=== PATIENT | female | born 1990 | race Caucasian/White ===

== ENCOUNTER → 2016-07-25 | Outpatient (CLI) | payer BC ==
[~2016-07-25] MED LIST: BCPILLS PO
== END | disposition home or self-care (01) ==
LOC: C.PAPS 09:57
PROVIDERS: ATTEND Obstetrics & Gynecology
DX: Z01.419 Encounter for gynecological examination (general) (routine) without abnormal findings (principal)

== ENCOUNTER → 2016-09-29 | Outpatient (CLI) | payer BC ==
[2016-09-29 12:48] LABS: C-REACTIVE PROTEIN < 0.29 mg/dl (0-0.29); RHEUMATOID FACTOR < 10.0 U/mL (0-15)
[2016-09-29 14:04] LABS: LYME DISEASE AB IGG NEG (NEG); LYME DISEASE AB IGM NEG (NEG)
== END | disposition home or self-care (01) ==
LOC: C.LABBFT 10:18
PROVIDERS: ATTEND Physician Assistant Medical
DX: M79.641 Pain in right hand (principal)

== ENCOUNTER → 2016-10-04 | Outpatient (CLI) | payer BC ==
--- NOTE | 2016-10-04 17:31 | DIAGNOSTIC IMAGING REPORT ---
LEFT HAND MIN 3 VIEWS ROUTINE CLINICAL HISTORY: Left hand pain COMPARISON: None. DISCUSSION: No fractures or dislocations are visualized. There is no erosive disease. IMPRESSION: No bony abnormalities identified. Electronically signed by: Romie Solano M.D. 10/04/2016 5:29 PM Dictated Date/Time: 10/04/2016 5:29 PM
--- NOTE | 2016-10-04 17:32 | DIAGNOSTIC IMAGING REPORT ---
RIGHT HAND MIN 3 VIEWS ROUTINE CLINICAL HISTORY: Right hand pain COMPARISON: None. DISCUSSION: No fractures or dislocations are visualized. No erosive changes are visualized. IMPRESSION: No bony abnormalities identified. Electronically signed by: Romie Solano M.D. 10/04/2016 5:30 PM Dictated Date/Time: 10/04/2016 5:30 PM
== END | disposition home or self-care (01) ==
LOC: C.RAD 17:08
PROVIDERS: ATTEND Physician Assistant Medical
DX: M79.641 Pain in right hand (principal); M79.642 Pain in left hand

== ENCOUNTER → 2017-05-13 | Outpatient (CLI) | payer BC | END | disposition home or self-care (01) | LOC: C.LABBFT 14:11 | PROVIDERS: ATTEND Internal Medicine | DX: R39.9 Unspecified symptoms and signs involving the genitourinary system (principal) ==

== ENCOUNTER → 2017-08-21 | Outpatient (CLI) | payer OTHER | END | disposition home or self-care (01) | LOC: C.PAPS 10:03 | PROVIDERS: ATTEND Physician Assistant | DX: Z12.4 Encounter for screening for malignant neoplasm of cervix (principal); Z11.51 Encounter for screening for human papillomavirus (HPV) ==

== ENCOUNTER 2017-10-06 05:01 | Emergency (ER) | payer OTHER ==
[~2017-10-06] VITALS: Ht 167.6 cm; Wt 101.0 kg
[2017-10-06 05:04] VITALS: TEMP 36.6; Ht 167.6 cm; Wt 101.0 kg
[2017-10-06] MEDS ORDERED: DiphenhydrAMINE HCL 50 MG/ML VIAL IV STA (05:18)
[2017-10-06] MEDS ORDERED: SODIUM CHLORIDE 0.9% 1000ML 1,000 ML IV STA (05:18)
[2017-10-06] MEDS ORDERED: [UNRECOGNIZED DRUG - CODE] (05:18)
[2017-10-06] MEDS ORDERED: METOCLOPRAMIDE HCL INJ 5 MG/ML 2 ML VIAL IV STA (05:18)
[2017-10-06 06:41] VITALS: BP 116/66; PULSE 74; O2SAT 100
--- NOTE | 2017-10-06 06:43 | EMERGENCY ROOM VISIT NOTE ---
History First contact with patient: 05:09 Chief Complaint: HEADACHE Stated Complaint: MIGRAINE History of Present Illness The patient is a 26 year old female who presents to the Emergency Room with complaints of headache since last night that was slow in onset with nausea and vomiting with photophobia. Patient sees Dr. Estrada. Normal imaging in the past. She tried Tylenol with no relief of symptoms. Patient denies sudden onset headache, fever, chills, cough, congestion, cold symptoms, neck stiffness , localized weakness. Review of Systems An 10 system review of systems was completed with positives and pertinent negatives listed in the HPI. Past Medical/Surgical History Migraines Social History Smoking Status: Never Smoker Current/Historical Medications Scheduled Hormone Cream Base (Hormone Cream Base), 1 DOSE UNKNOWN DIRECTED Physical Exam Vital Signs Date Time Temp Pulse Resp B/P (MAP) Pulse Ox O2 Delivery O2 Flow Rate FiO2 10/06/17 06:41 74 16 116/66 100 Room Air 10/06/17 05:04 36.6 79 20 122/84 99 Room Air Physical Exam VITALS: Vitals are noted on the nurse's note and reviewed by myself. Vital signs stable. GENERAL: Pleasant female, in no acute distress, nondiaphoretic, well-developed well-nourished. SKIN: The skin was without rashes, erythema, edema, or bruising. There is no tenting of the skin. Capillary reflex less than 2 seconds. HEAD: Normocephalic atraumatic. EARS: External auditory canals clear, tympanic membranes pearly clemente without erythema or effusion bilaterally. EYES: Pupils equal round and reactive to light and accommodation. Conjunctivae without injection, sclerae without icterus. Extraocular movements intact. NOSE: Patent, turbinates without inflammation or discharge. No sinus tenderness. MOUTH: Mucous membranes moist. Pharynx without erythema or exudate. Uvula midline. Airway patent. Tongue does not deviate. NECK: Supple without nuchal rigidity. No lymphadenopathy. No thyromegaly. Cervical spine is nontender. No JVD. HEART: Regular rate and rhythm without murmurs gallops or rubs. LUNGS: Clear to auscultation bilaterally without wheezes, rales or rhonchi. No retractions or accessory muscle use. ABDOMEN: Positive bowel sounds x 4. Normal tympanic percussion. Soft, nontender, without masses or organomegaly. Lombardo sign negative. No guarding or rebound tenderness. No CVA tenderness MUSCULOSKELETAL: No muscle atrophy, erythema, or edema noted. NEURO: Patient was alert and oriented to person place and time. Normal sensation to light and sharp touch. No focal neurological deficits. Medical Decision & Procedures Medications Administered Medications (Trade) Dose Ordered Sig/Sukumar Route Start Time Stop Time Status Last Admin Dose Admin Metoclopramide HCl (Reglan Inj) 10 mg NOW STAT IV 10/06/17 05:18 10/06/17 05:19 DC 10/06/17 05:31 10 MG Diphenhydramine HCl (Benadryl Inj) 12.5 mg NOW STAT IV 10/06/17 05:18 10/06/17 05:19 DC 10/06/17 05:31 12.5 MG Sodium Chloride 1,000 ml @ 999 mls/hr Q1H1M STAT IV 10/06/17 05:18 10/06/17 06:18 DC 10/06/17 05:30 999 MLS/HR ED Course Prior records/ancillary studies reviewed. Additional history obtained from boyfriend. Triage Nursing notes reviewed. The patient's history was concerning for headache. Differential diagnosis: Etiologies such as migraine headache, meningitis, sinusitis, CO exposure, ICH, SAH, infection, tumor, headache, sinus thrombosis, arterial dissection, as well as others were entertained. Physical examination findings: As above. Non-focal. ER treatment provided: Reglan, Benadryl, IV fluids On reassessment the patient felt better. Diagnostics interpreted by me: Deferred This appears to be consistent with migraine. Patient has a long-standing history of this and symptoms feel similar. She is neurovascularly and neurologically intact. Headache was slow in onset. She is advised to rest, stay well-hydrated, follow up with her family care or neurologist in a few days or here in the ER sooner for severe pain, fevers, vomiting, worsening signs or symptoms or as needed.. By the evaluation outlined above emergent etiologies such as meningitis, sinusitis, CO exposure, ICH, SAH, infection, temporal arteritis, tumor, sinus thrombosis, arterial dissection, as well as others were deemed relatively unlikely. The pt informed about the findings as listed above. All questions were answered and pleased with the treatment. Return instructions were outlined and the patient was discharged in stable condition. The chart was completed utilizing Dragon Speech voice recognition software. Grammatical errors, random word insertions, pronoun errors, and incomplete sentences are an occassional consequence of this system due to software limitations, ambient noise, and hardware issues. Any formal questions or concerns about the content, text, or information contained within the body of this dictation should be directly addressed to the physician bankruptcy legal assistant for clarification. Referral: The patient was referred back to their primary care physician for follow-up in 2 to 3 days for a recheck of the current condition. Medical Decision As above Medication Reconcilliation Current Medication List: was personally reviewed by me Blood Pressure Screening Patient's blood pressure: Normal blood pressure Impression Primary Impression: Migraine Departure Information Dispostion Home / Self-Care Condition GOOD Referrals Jamil Carrillo M.D. (PCP) Patient Instructions My [facility] Additional Instructions DO NOT drive, drink alcohol, operate machinery, or perform dangerous activities today. You were given medications in the ER that can affect your ability to safely function or operate a vehicle. Rest today in a quiet, peaceful, dark environment and get a full 8-10 hrs of sleep tonight. Avoid loud noises, smoke/smoking, alcohol, bright lights, stress, or physical exertion today to minimize the chance the headache may return. Continue current medications. Ibuprofen(Motrin, Advil) may be used for fever or pain. Use 600mg every six hours as needed. Take with food. Avoid using more than 2400mg in a 24 hour period. Do not use 2400mg per day for more than three consecutive days without physician direction. Prolonged inappropriate use can lead to stomach upset or ulcers. (AND/OR) Acetaminophen(Tylenol) may be used for fever or pain. Use 1000mg every six hours as needed. Avoid using more than 3000mg in a 24 hour period. Return to the ER for passing out, worsening headache, vision problems, neck stiffness/pain, fevers, vomiting, worsening of your condition, or as needed. Follow up with your primary physician and/or a neurologist in 2-3 days for a recheck of your current condition. Problem Qualifiers Primary Impression: Migraine Migraine type: without aura Status migrainosus presence: without status migrainosus Intractability: not intractable Qualified Codes: G43.009 - Migraine without aura, not intractable, without status migrainosus
== END 2017-10-06 06:45 | disposition home or self-care (01) ==
LOC: C.EDB 05:02 → C.EDA 06:45
DX: G43.009 Migraine without aura, not intractable, without status migrainosus (principal)

== ENCOUNTER 2021-01-25 03:19 | Inpatient (IN) ==
[2021-01-25] MEDS ORDERED: OXYTOCIN 30 UNITS/500 ML BAG IV PRN ×3 (06:06→23:06)
[2021-01-25 06:44] LABS: Hematocrit (blood only) 40.7 % (37-47); Hemoglobin 13.7 g/dL (12.0-16.0); Mean Corpuscular Hgb Conc 33.7 g/dL (32-36); Mean Platelet Volume 10.6 fL (7.4-10.4); Platelet Count 220 K/uL (130-400); RDW Coefficient of Variation 14.6 % (11.5-14.5); RDW Standard Deviation 45.4 fL (36.4-46.3); Red Blood Count 4.73 M/uL (4.2-5.4); White Blood Count 11.06 K/uL (4.8-10.8)
[2021-01-25] MEDS ORDERED: BUTORPHANOL TARTRATE 1 MG/ML VIAL IV PRN (07:37)
[2021-01-25] MEDS: LACTATED RINGER'S 1,000 ML IV PRN ×3 (07:42→15:05)
[2021-01-25] MEDS ORDERED: BUTORPHANOL TARTRATE 1 MG/ML VIAL ONE (08:03)
--- NOTE | 2021-01-25 11:21 | Labor Progress Brief Note ---
Date of Service January 25, 2021 Subjective Admitted in labor overnight. I took over care this morning. FHT Cat 1 [place] irreg SVE: /- Recommend start pitocin for regular ctx. Patient agreeable. Assessment & Plan Admission and Anticipated Discharge Date Admission Date: January 25, 2021 Results & Data ([facility]) Vital Signs (Past 12 Hours) Vital Signs Temp Pulse Resp BP 01/25/21 09:01 61 20 118/60 01/25/21 07:03 36.6 C 49 L 20 116/60 01/25/21 03:30 36.7 C 60 18 123/75 01/25/21 03:28 60 123/75 Coding Level of Care Code None
[2021-01-25] MEDS ORDERED: SODIUM CHLORIDE 0.9% INJ 10 ML VIAL ONE ×2 (12:29→17:58)
[2021-01-25] MEDS ORDERED: ePHEDrine sulfate 50 MG/ML AMP ONE (12:29)
[2021-01-25] MEDS ORDERED: BUPIVACAINE 0.25% 30 ML VIAL ONE ×2 (12:29→17:58)
[2021-01-25] MEDS ORDERED: fentaNYL citrate 100 MCG/2 ML VIAL ONE (12:29)
[2021-01-25] MEDS ORDERED: fentaNYL 2MCG/ML ROPIVACAINE 1.25MG/ML 100 ML BAG EPI ONE (12:30)
[2021-01-25] MEDS ORDERED: diphenhydrAMINE 50 MG/ML VIAL IV PRN (13:11)
[2021-01-25] MEDS ORDERED: NALOXONE HCL 1 MG in SODIUM CHLORIDE 0.9% 1000ML 1,000 ML IV PRN (13:11)
[2021-01-25] MEDS ORDERED: ONDANSETRON INJ 2 MG/ML 2 ML VIAL IV PRN (13:11)
[2021-01-25] MEDS ORDERED: NALBUPHINE HCL INJ 10 MG/ML AMP IV PRN (13:11)
[2021-01-25] MEDS ORDERED: ePHEDrine sulfate 50 MG/ML AMP IV PRN (13:11)
[2021-01-25] MEDS ORDERED: NALOXONE HCL 0.4 MG/1 ML VIAL/CARP IV PRN (13:11)
--- NOTE | 2021-01-25 13:20 | Anesthesiology Consultation ---
Date of Service January 25, 2021 Assessment & Plan Chart Review Chart Review: Patient NOT seen in Pre Admission Testing and Acceptable Risk for Labor Epidural Consults Requested none ASA ASA2 Proposed Anesthesia Anesthesia Type: Labor Epidural and CSE Risk / Benefits Reviewed With: PT / POA / Parent / Guardian, Accepts Plan and Informed Consent Obtained History Height/Weight Height: 5 ft 6 in Weight: 112.945 kg Allergies Allergy/AdvReac Type Severity Reaction Status Date / Time dextromethorphan Allergy Unknown RASH Verified 01/18/21 16:38 guaifenesin Allergy Unknown RASH Verified 01/18/21 16:38 yellow dye Allergy Unknown RASH Verified 01/18/21 16:38 pseudoephedrine AdvReac Verified 01/18/21 16:38 [From [facility]] Medications Home Medications Medication Instructions Recorded Confirmed Last Taken vit no.95-ferrous 1 tab PO DAILY 12/23/18 01/25/21 01/24/21 fumarate 28 mg-folic acid 800 mcg tablet ( Multivitamins) Active Medications Generic Name Dose Route Start Last Admin Trade Name Freq PRN Reason Stop Dose Admin Butorphanol Tartrate 1 mg 01/25/21 07:37 01/25/21 10:48 Butorphanol Tartrate 1 Mg/Ml Vial IV 02/24/21 07:36 1 mg Q2HWA PRN Administration Pain Lactated Ringer's 1,000 mls @ 125 mls/hr 01/25/21 06:06 01/25/21 12:55 Lr IV 01/27/21 06:05 999 mls/hr .Q8H PRN Administration L&D Protocol Protocol Oxytocin 30 units in 500 mls @ 5 mls/hr 01/25/21 11:16 01/25/21 12:45 Pitocin IV 01/27/21 11:15 0.3 units/hr .Q24H PRN 5 mls/hr Labor Induction/Augmentation Titration Protocol 0.3 UNITS/HR NPO Date Last Intake of Fluids: 01/25/21 Time Last Intake of Fluids: 12:00 Date Last Intake of Solids: 01/25/21 Time Last Intake of Solids: 07:00 Past Medical History Medical History ASCUS with positive high risk HPV Atypical chest pain Cervical intraepithelial neoplasia (TYRELL) Fertility testing completed at [place] GERD (gastroesophageal reflux disease) History of migraine with aura Exercise / Class Metabolic Activity II 4-5 Yardwork/Stairs/Walk up hill Past Family History Family History Aunt Migraine Family/Other Hypertension Denies family history of Colon cancer Ovarian cancer Prostate cancer Breast cancer Past Surgical History Surgical History H/O oral surgery wisdom teeth Hx of local excision of skin lesion Past Anesthesia History No Hx of Anesthesia Complications and No Family Hx of Anesthesia Complications History of PONV No Hx of PONV and No Hx of Motion Sickness Social History Smoking Status: Never smoker Hx Alcohol Use: No Hx Substance Use: No Review of Systems no chest pain or sob Physical Exam Vital Signs Last Vital Signs Temp 36.7 C 01/25/21 12:43 Pulse 61 01/25/21 13:13 Resp 22 01/25/21 12:43 BP 141/72 H 01/25/21 13:13 SpO2 97 ENMT Mouth: no TMJ abnormality Thyromental Distance: > or= 3.5 Finger Breadths Mallampati Class: II Neck normal visual inspection Respiratory normal respiratory effort Auscultation: lungs clear to auscultation bilaterally Cardiovascular Rate/Rhythm: regular rate and regular rhythm Musculoskeletal Spine: normal cervical ROM Neurologic moves all extremities Psychiatric Orientation: alert and oriented x 3 Testing Laboratory Results 01/25/21 06:34
--- NOTE | 2021-01-25 15:49 | Labor Progress Brief Note ---
Date of Service January 25, 2021 Subjective Comfortable with epidural. FHT Cat 1 [place] Q 2-3 SVE /-1 AROM clear. Continue IOL. Assessment & Plan Admission and Anticipated Discharge Date Admission Date: January 25, 2021 Results & Data ([place]) Vital Signs (Past 12 Hours) Vital Signs Temp Pulse Resp BP Pulse Ox 01/25/21 15:43 61 99 01/25/21 15:41 67 113/64 01/25/21 15:38 72 99 01/25/21 15:33 90 99 01/25/21 15:30 18 01/25/21 15:28 70 98 01/25/21 15:26 88 120/63 01/25/21 15:23 80 99 01/25/21 15:18 89 98 01/25/21 15:13 68 97 01/25/21 15:10 57 L 129/70 01/25/21 15:08 69 98 01/25/21 15:06 36.7 C 01/25/21 15:03 76 99 01/25/21 14:58 97 H 98 01/25/21 14:55 62 134/70 01/25/21 14:53 64 97 01/25/21 14:48 70 97 01/25/21 14:43 65 97 01/25/21 14:41 61 130/68 01/25/21 14:38 64 98 01/25/21 14:33 91 H 99 01/25/21 14:28 71 96 01/25/21 14:25 87 112/62 01/25/21 14:23 74 97 01/25/21 14:18 79 97 01/25/21 14:13 76 97 01/25/21 14:10 93 H 109/56 L 01/25/21 14:08 77 96 01/25/21 14:03 82 97 01/25/21 13:58 80 98 01/25/21 13:56 73 119/59 L 01/25/21 13:53 73 98 01/25/21 13:48 82 100 01/25/21 13:43 97 H 98 01/25/21 13:40 96 H 115/57 L 01/25/21 13:38 73 108/58 L 99 01/25/21 13:36 74 107/51 L 01/25/21 13:34 75 107/59 L 01/25/21 13:33 68 99 01/25/21 13:32 62 109/56 L 01/25/21 13:30 69 121/57 L 01/25/21 13:28 69 100 01/25/21 13:27 77 128/65 01/25/21 13:23 68 100 01/25/21 13:18 86 99 01/25/21 13:13 61 141/72 H 01/25/21 13:05 58 L 141/76 H 01/25/21 12:43 36.7 C 55 L 22 128/77 01/25/21 12:28 62 139/66 01/25/21 12:12 51 L 141/82 H 01/25/21 11:57 36.7 C 60 20 142/83 H 01/25/21 09:01 61 20 118/60 01/25/21 07:03 36.6 C 49 L 20 116/60 Coding Level of Care Code None
[2021-01-25] MEDS: fentaNYL 2MCG/ML ROPIVACAINE 1.25MG/ML 100 ML BAG EPI PRN ×2 (17:48→19:57)
[2021-01-25] MEDS ORDERED: NURSING L&D Epidural Breakthrough Pain Update ONE (17:54)
--- NOTE | 2021-01-25 17:59 | History & Physical Report ---
Date of Service January 25, 2021 Assessment & Plan (1) Encounter for supervision in primigravida, antepartum: Plan: Admit in labor. Pitocin for augmentation. OK for epidural. Admission and Anticipated Discharge Date Admission Date: January 25, 2021 History of Present Illness Chief Complaint: labor Primary Care Provider: Jamil Carrillo MD 30yo @ 39 4/7, admitted early this AM in labor. Allergies Allergy/AdvReac Type Severity Reaction Status Date / Time dextromethorphan Allergy Unknown RASH Verified 01/18/21 16:38 guaifenesin Allergy Unknown RASH Verified 01/18/21 16:38 yellow dye Allergy Unknown RASH Verified 01/18/21 16:38 pseudoephedrine AdvReac Verified 01/18/21 16:38 [From [facility]] Home Medications Medication Instructions Recorded Confirmed Type vit no.95-ferrous 1 tab PO DAILY 12/23/18 01/25/21 History fumarate 28 mg-folic acid 800 mcg tablet ( Multivitamins) Patient History Medical History ASCUS with positive high risk HPV Atypical chest pain Cervical intraepithelial neoplasia (TYRELL) Fertility testing completed at [place] GERD (gastroesophageal reflux disease) History of migraine with aura Surgical History H/O oral surgery wisdom teeth Hx of local excision of skin lesion Family History Aunt Migraine Family/Other Hypertension Denies family history of Colon cancer Ovarian cancer Prostate cancer Breast cancer Social History Smoking Status: Never smoker Hx Alcohol Use: No Hx Substance Use: No Preferred Language: Icelandic Communication Ability: Effective Beliefs That Will Affect Care: None marital status: marital status details: Chris (30) [phone] Current Living Situation: Spouse Current Living Situation Comment: lives with spouse, 2 dogs, 2 cats, spouse to change litter current occupational status: employed 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 Other Information That Helps Us Care for You: No Feels Safe at Home: Yes Safety Concerns: Feels Safe At This Time Dental Care, Regularly: Yes Assistive Devices: Glasses Review of Systems All systems reviewed & are unremarkable except as noted in HPI & below Physical Exam Constitutional: WD/WN, vitals as above Respiratory: normal respiratory effort, lungs clear to auscultation no respiratory distress Cardiovascular: Rate/Rhythm: regular rate and regular rhythm Gastrointestinal (Abdomen): Inspection/Auscultation: abdomen normal to inspection Percussion/Palpation: abdomen soft; abdomen nontender Gravid. No s/s chorio or abruption. Skin: no rashes, warm and dry Psychiatric: A+Ox3, euthymic affect Results & Data ([facility]) Vital Signs (Past 12 Hours) Vital Signs Temp Pulse Resp BP Pulse Ox 01/25/21 17:55 74 121/59 L 01/25/21 17:53 76 96 01/25/21 17:48 71 97 01/25/21 17:43 69 97 01/25/21 17:40 74 121/59 L 01/25/21 17:38 68 96 01/25/21 17:33 70 96 01/25/21 17:30 18 01/25/21 17:28 68 95 01/25/21 17:26 70 129/60 01/25/21 17:23 68 98 01/25/21 17:18 83 98 01/25/21 17:13 66 97 01/25/21 17:12 67 114/57 L 01/25/21 17:08 71 98 01/25/21 17:03 64 97 01/25/21 17:02 36.7 C 01/25/21 17:00 18 01/25/21 16:58 66 98 01/25/21 16:55 63 124/63 01/25/21 16:53 58 L 97 01/25/21 16:48 66 99 01/25/21 16:43 75 97 01/25/21 16:40 100 H 141/87 H 01/25/21 16:38 62 98 01/25/21 16:33 66 97 01/25/21 16:30 18 01/25/21 16:28 65 98 01/25/21 16:25 58 L 127/71 01/25/21 16:23 59 L 97 01/25/21 16:18 83 97 01/25/21 16:13 69 98 01/25/21 16:10 79 116/64 01/25/21 16:08 67 98 01/25/21 16:03 76 96 01/25/21 16:00 18 01/25/21 15:58 69 98 01/25/21 15:56 75 120/68 01/25/21 15:53 71 98 01/25/21 15:48 75 98 01/25/21 15:43 61 99 01/25/21 15:41 67 113/64 01/25/21 15:38 72 99 01/25/21 15:33 90 99 01/25/21 15:30 18 01/25/21 15:28 70 98 01/25/21 15:26 88 120/63 01/25/21 15:23 80 99 01/25/21 15:18 89 98 01/25/21 15:13 68 97 01/25/21 15:10 57 L 129/70 01/25/21 15:08 69 98 01/25/21 15:06 36.7 C 01/25/21 15:03 76 99 01/25/21 14:58 97 H 98 01/25/21 14:55 62 134/70 01/25/21 14:53 64 97 01/25/21 14:48 70 97 01/25/21 14:43 65 97 01/25/21 14:41 61 130/68 01/25/21 14:38 64 98 01/25/21 14:33 91 H 99 01/25/21 14:28 71 96 01/25/21 14:25 87 112/62 01/25/21 14:23 74 97 01/25/21 14:18 79 97 01/25/21 14:13 76 97 01/25/21 14:10 93 H 109/56 L 01/25/21 14:08 77 96 01/25/21 14:03 82 97 01/25/21 13:58 80 98 01/25/21 13:56 73 119/59 L 01/25/21 13:53 73 98 01/25/21 13:48 82 100 01/25/21 13:43 97 H 98 01/25/21 13:40 96 H 115/57 L 01/25/21 13:38 73 108/58 L 99 01/25/21 13:36 74 107/51 L 01/25/21 13:34 75 107/59 L 01/25/21 13:33 68 99 01/25/21 13:32 62 109/56 L 01/25/21 13:30 69 121/57 L 01/25/21 13:28 69 100 01/25/21 13:27 77 128/65 01/25/21 13:23 68 100 01/25/21 13:18 86 99 01/25/21 13:13 61 141/72 H 01/25/21 13:05 58 L 141/76 H 01/25/21 12:43 36.7 C 55 L 22 128/77 01/25/21 12:28 62 139/66 01/25/21 12:12 51 L 141/82 H 01/25/21 11:57 36.7 C 60 20 142/83 H 01/25/21 09:01 61 20 118/60 01/25/21 07:03 36.6 C 49 L 20 116/60 Coding Level of Care Code None Diagnoses Encounter for supervision in primigravida, antepartum Z34.00
[2021-01-25] MEDS ORDERED: ACETAMINOPHEN 500 MG TAB PO PRN (18:24)
[2021-01-25] MEDS ORDERED: ACETAMINOPHEN 500 MG TAB ONE (18:31)
--- NOTE | 2021-01-25 20:55 | Labor Progress Brief Note ---
Date of Service January 25, 2021 Subjective Complete dilation, pushing actively. +2 station, good effort. FHT Cat 1 [place] Q 2 Assessment & Plan Admission and Anticipated Discharge Date Admission Date: January 25, 2021 Results & Data ([facility]) Vital Signs (Past 12 Hours) Vital Signs Temp Pulse Resp BP Pulse Ox 01/25/21 20:53 72 145/70 H 94 01/25/21 20:48 72 97 01/25/21 20:43 78 97 01/25/21 20:39 69 135/71 01/25/21 20:38 71 97 01/25/21 20:33 78 96 01/25/21 20:30 18 01/25/21 20:28 87 96 01/25/21 20:25 83 92 01/25/21 20:24 67 136/71 01/25/21 20:23 95 H 99 01/25/21 20:18 79 95 01/25/21 20:13 74 96 01/25/21 20:08 87 98 01/25/21 20:03 78 99 01/25/21 20:00 18 01/25/21 19:58 93 H 97 01/25/21 19:53 95 H 100 01/25/21 19:52 68 134/62 01/25/21 19:48 110 H 100 01/25/21 19:46 93 H 90 01/25/21 19:45 36.8 C 01/25/21 19:43 74 99 01/25/21 19:38 78 93 01/25/21 19:35 98 H 93 01/25/21 19:33 78 100 01/25/21 19:30 18 01/25/21 19:28 74 100 01/25/21 19:23 67 141/64 H 99 01/25/21 19:18 68 98 01/25/21 19:13 76 97 01/25/21 19:08 66 135/64 97 01/25/21 19:03 68 100 01/25/21 19:00 18 01/25/21 18:58 66 98 01/25/21 18:53 69 97 01/25/21 18:52 65 131/70 01/25/21 18:48 69 96 01/25/21 18:43 68 98 01/25/21 18:38 69 127/68 98 01/25/21 18:33 68 100 01/25/21 18:30 18 01/25/21 18:28 61 98 01/25/21 18:23 73 97 01/25/21 18:22 85 123/60 01/25/21 18:19 68 122/56 L 01/25/21 18:18 68 99 01/25/21 18:17 77 124/58 L 01/25/21 18:15 71 130/62 01/25/21 18:13 67 124/59 L 97 01/25/21 18:10 70 120/59 L 01/25/21 18:08 70 96 01/25/21 18:03 75 98 01/25/21 18:00 18 01/25/21 17:58 76 98 01/25/21 17:55 74 121/59 L 01/25/21 17:53 76 96 01/25/21 17:48 71 97 01/25/21 17:43 69 97 01/25/21 17:40 74 121/59 L 01/25/21 17:38 68 96 01/25/21 17:33 70 96 01/25/21 17:30 18 01/25/21 17:28 68 95 01/25/21 17:26 70 129/60 01/25/21 17:23 68 98 01/25/21 17:18 83 98 01/25/21 17:13 66 97 01/25/21 17:12 67 114/57 L 01/25/21 17:08 71 98 01/25/21 17:03 64 97 01/25/21 17:02 36.7 C 01/25/21 17:00 18 01/25/21 16:58 66 98 01/25/21 16:55 63 124/63 01/25/21 16:53 58 L 97 01/25/21 16:48 66 99 01/25/21 16:43 75 97 01/25/21 16:40 100 H 141/87 H 01/25/21 16:38 62 98 01/25/21 16:33 66 97 01/25/21 16:30 18 01/25/21 16:28 65 98 01/25/21 16:25 58 L 127/71 01/25/21 16:23 59 L 97 01/25/21 16:18 83 97 01/25/21 16:13 69 98 01/25/21 16:10 79 116/64 01/25/21 16:08 67 98 01/25/21 16:03 76 96 01/25/21 16:00 18 01/25/21 15:58 69 98 01/25/21 15:56 75 120/68 01/25/21 15:53 71 98 01/25/21 15:48 75 98 01/25/21 15:43 61 99 01/25/21 15:41 67 113/64 01/25/21 15:38 72 99 01/25/21 15:33 90 99 01/25/21 15:30 18 01/25/21 15:28 70 98 01/25/21 15:26 88 120/63 01/25/21 15:23 80 99 01/25/21 15:18 89 98 01/25/21 15:13 68 97 01/25/21 15:10 57 L 129/70 01/25/21 15:08 69 98 01/25/21 15:06 36.7 C 01/25/21 15:03 76 99 01/25/21 14:58 97 H 98 01/25/21 14:55 62 134/70 01/25/21 14:53 64 97 01/25/21 14:48 70 97 01/25/21 14:43 65 97 01/25/21 14:41 61 130/68 01/25/21 14:38 64 98 01/25/21 14:33 91 H 99 01/25/21 14:28 71 96 01/25/21 14:25 87 112/62 01/25/21 14:23 74 97 01/25/21 14:18 79 97 01/25/21 14:13 76 97 01/25/21 14:10 93 H 109/56 L 01/25/21 14:08 77 96 01/25/21 14:03 82 97 01/25/21 13:58 80 98 01/25/21 13:56 73 119/59 L 01/25/21 13:53 73 98 01/25/21 13:48 82 100 01/25/21 13:43 97 H 98 01/25/21 13:40 96 H 115/57 L 01/25/21 13:38 73 108/58 L 99 01/25/21 13:36 74 107/51 L 01/25/21 13:34 75 107/59 L 01/25/21 13:33 68 99 01/25/21 13:32 62 109/56 L 01/25/21 13:30 69 121/57 L 01/25/21 13:28 69 100 01/25/21 13:27 77 128/65 01/25/21 13:23 68 100 01/25/21 13:18 86 99 01/25/21 13:13 61 141/72 H 01/25/21 13:05 58 L 141/76 H 01/25/21 12:43 36.7 C 55 L 22 128/77 01/25/21 12:28 62 139/66 01/25/21 12:12 51 L 141/82 H 01/25/21 11:57 36.7 C 60 20 142/83 H 01/25/21 09:01 61 20 118/60 Coding Level of Care Code None
--- NOTE | 2021-01-25 22:16 | Delivery Summary ---
Vaginal Delivery Summary Date of Service January 25, 2021 Vaginal Delivery Summary and 1st Degree LAC Vaginal Delivery Summary: Pre-delivery diagnoses: 30yo @ 39 4/7, spontaneous labor Post-delivery diagnoses: same Procedure: spontaneous vaginal delivery, repair of 2nd degree perineal laceration Surgeon: Katheryn Seals DO Complications: none Findings: Viable male . Apgars: 8/9 . Weight pending, please see nursery records Estimated blood loss: 300ml Description of delivery: The patient progressed to complete with epidural anesthesia. She then began to push. She spontaneously vaginally delivered a viable from the cephalic presentation. The head delivered in CHIQUI position. The anterior shoulder delivered, followed by the posterior shoulder, followed by the body. The baby was placed on mother's abdomen and a spontaneous cry was heard. Delayed cord clamping was employed, and the cord was doubly clamped and cut. A segment was retained for cord gases. Cord blood was obtained. The placenta was delivered spontaneously intact with a 3-vessel cord. True knot in umbilical cord. The uterus and vagina were swept of clots and debris. IV pitocin was given. The uterus became firm. The cervix, vagina, and perineum were inspected and 2nd degree perineal laceration was noted, repaired in standard fashion with 3-0 vicryl. Excellent hemostasis was observed. The mother and baby are recovering in stable and good condition in the room. Sponge, needle and instrument counts were correct x 2. Katheryn Seals DO [facility] Vaginal Delivery Charge Vaginal Delivery Codes: 37308 global code for the antepartum, delivery, and post- Delivery Type Details: and 1st Degree LAC
--- NOTE | 2021-01-25 22:53 | Anesthesia Procedure Note ---
Date of Service January 25, 2021 Anesthesia Post Epidural Note Vital Signs Vital Signs: Temp Pulse Resp BP Pulse Ox 36.8 C 88 18 135/75 96 01/25/21 19:45 01/25/21 22:48 01/25/21 22:24 01/25/21 22:39 01/25/21 22:48 Notes Mental Status: alert / awake / arousable and participated in evaluation Nausea / Vomiting: adequately controlled Pain: adequately controlled Airway Patency, RR, SpO2: stable & adequate BP & HR: stable & adequate Hydration State: stable & adequate Neuraxial Anesthesia: was administered and sensory block is resolving Anesthetic Complications: no major complications apparent and Pt Satisfied with anesthetic care Epidural: Removed without complications and With tip intact
[2021-01-25] MEDS ORDERED: HYDROCORTISONE ACETATE 25 MG SUPP PR PRN (23:06)
[2021-01-25] MEDS ORDERED: SUPERCREAM 0.870% 15 GM JAR EXT PRN (23:06)
[2021-01-25] MEDS ORDERED: oxyCODONE/ACETAMINOPHEN 5mg/325mg TAB PO PRN (23:06)
[2021-01-25] MEDS ORDERED: DIPHTHERIA/TETANUS/PERTUSSIS 0.5 ML SYR/VIAL IM ONE (23:06)
[2021-01-25] MEDS ORDERED: BENZOCAINE 20% AER SPR 82.5 GM CAN EXT PRN (23:06)
[2021-01-25] MEDS ORDERED: bisacodyL 10 MG SUPP PR PRN (23:06)
[2021-01-26] MEDS: IBUPROFEN 600 MG TAB PO PRN ×5 (01:24→21:13)
[2021-01-26 06:02] LABS: Hematocrit (blood only) 35.6 % (37-47); Hemoglobin 11.9 g/dL (12.0-16.0)
[2021-01-26] MEDS: PRENATAL VITAMIN 1 TAB PO SCH (07:56)
[2021-01-26] MEDS: DOCUSATE SODIUM 100 MG CAP PO SCH ×2 (07:56→21:13)
[2021-01-26] MEDS: ACETAMINOPHEN 325 MG TAB PO PRN ×3 (07:56→23:24)
--- NOTE | 2021-01-26 09:20 | Obstetrical Progress Note ---
Date of Service January 26, 2021 Assessment & Plan (1) Encounter for supervision in primigravida, antepartum: Doing well PPD1. Anticipate DC home tomorrow. Subjective Ambulation: ambulating normally Voiding: no voiding problems Diet Tolerance:: regular diet Lochia:: Moderate . Doing well. Review of Systems All systems reviewed & are unremarkable except as noted in HPI & below Physical Exam Constitutional WD/WN, vitals as above no acute distress Respiratory normal respiratory effort Cardiovascular Rate/Rhythm: regular rate and regular rhythm Gastrointestinal (Abdomen) Inspection/Auscultation: abdomen normal to inspection; abdomen not distended Percussion/Palpation: abdomen soft Genitourinary OB Exam Abdomen: + fundal height Fundus: + firm; not tender Results & Data ([facility]) Vital Signs (Past 12 Hours) Vital Signs Temp Pulse Pulse Resp BP BP Pulse Ox 01/26/21 04:10 36.8 C 76 16 115/76 96 01/26/21 01:05 36.6 C 78 16 116/75 96 01/26/21 00:39 121 H 144/66 H 01/26/21 00:24 90 148/71 H 01/26/21 00:09 109 H 149/71 H 01/25/21 23:54 109 H 153/76 H 01/25/21 23:24 90 139/64 01/25/21 23:09 102 H 132/62 01/25/21 23:08 114 H 97 01/25/21 23:03 107 H 96 01/25/21 22:58 111 H 96 01/25/21 22:54 90 18 140/66 01/25/21 22:53 96 H 97 01/25/21 22:48 88 96 01/25/21 22:43 92 H 97 01/25/21 22:39 86 18 135/75 01/25/21 22:38 82 96 01/25/21 22:33 101 H 97 01/25/21 22:28 83 98 01/25/21 22:24 83 18 133/70 01/25/21 22:23 84 98 01/25/21 22:18 89 100 01/25/21 22:13 93 H 97 01/25/21 22:08 93 H 133/62 98 01/25/21 22:03 90 97 01/25/21 21:58 95 H 95 01/25/21 21:53 107 H 96 01/25/21 21:48 91 H 94 01/25/21 21:43 78 98 01/25/21 21:38 91 H 99 01/25/21 21:37 72 124/65 01/25/21 21:33 71 97 01/25/21 21:31 79 85 L 01/25/21 21:30 18 01/25/21 21:28 87 97 01/25/21 21:23 98 H 98
[2021-01-26] MEDS ORDERED: bisacodyL 5 MG TABEC PO SCH (20:00)
[2021-01-27] MEDS: IBUPROFEN 600 MG TAB PO PRN (02:13)
[2021-01-27] MEDS: ACETAMINOPHEN 325 MG TAB PO PRN (06:27)
--- NOTE | 2021-01-27 07:57 | Obstetrical Progress Note ---
Date of Service January 27, 2021 Assessment & Plan (1) Encounter for supervision in primigravida, antepartum: Doing well, meeting all pp milestones. Stable for d/c home today Subjective Ambulation: ambulating normally Voiding: no voiding problems Passing Gas:: Yes Diet Tolerance:: regular diet Lochia:: Small Feeding Type:: breast feeding Pain well managed with medication Review of Systems Denies fevers, chills, n/v, ORTIZ, CP, SOB Physical Exam Constitutional WD/WN, vitals as above no acute distress Respiratory normal respiratory effort; no respiratory distress and no labored breathing Cardiovascular RRR, no murmur, no edema Gastrointestinal (Abdomen) Percussion/Palpation: abdomen soft; abdomen nontender and no guarding fundus firm at umbilicus and NT Musculoskeletal BLE symmetric, nonerythematous, nontender Results & Data ([facility]) Vital Signs (Past 12 Hours) Vital Signs Temp Pulse Resp BP 01/26/21 23:20 98.1 F 80 16 122/79
[2021-01-27] MEDS: DOCUSATE SODIUM 100 MG CAP PO SCH (08:32)
[2021-01-27] MEDS: PRENATAL VITAMIN 1 TAB PO SCH (08:32)
== END 2021-01-27 12:05 | disposition home or self-care (01) | DRG 807 ==
LOC: OPB 03:19 → 4S1 03:23 → 4S2 01-26 01:15

== ENCOUNTER 2023-10-28 05:32 | Inpatient (IN) ==
[2023-10-28] MEDS ORDERED: LIDOCAINE 1% LOCAL 20 ML VIAL INFIL PRN (07:52)
[2023-10-28] MEDS ORDERED: OXYTOCIN 30 UNITS/NSS 30 UNITS/500 ML BAG IV PRN ×2 (07:52→15:27)
[2023-10-28] MEDS ORDERED: ACETAMINOPHEN 325 MG TAB PO PRN ×2 (07:52→15:27)
--- NOTE | 2023-10-28 07:54 | History & Physical Report ---
Date of Service October 28, 2023 Assessment & Plan (1) Encounter for supervision of normal in multigravida: Plan: Cervical change, will admit to L&D. EFM/toco. Labs. Desires epidural. History of Present Illness Chief Complaint: contractions Primary Care Provider: SINDY Corbin 32yo @ 39 11/02, contractions overnight worsening. No leaking fluid. No vaginal bleeding. + movement. Insufficient DNA on Panorama x 2 *Genetic Consult (05/05/23) -Decines additional cfdna or amnio -Evaluation with anatomy US -Rec growth at 28wks pyelectasis 5mm at 28 weeks -Resolved at 32wks Protocols Obesity (BMI between 35-39 @ beginning of ) *Growth US @ 32 wks *Weekly NSTs @ 36wks Allergies Allergy/AdvReac Type Severity Reaction Status Date / Time dextromethorphan Allergy Unknown RASH Verified 10/26/23 10:58 guaifenesin Allergy Unknown RASH Verified 10/26/23 10:58 yellow dye Allergy Unknown RASH Verified 10/26/23 10:58 pseudoephedrine AdvReac Verified 10/26/23 10:58 [From [facility]] Home Medications Medication Instructions Recorded Confirmed Type 21-iron fu-folic acid PO 03/04/23 10/26/23 History [ Complete] ondansetron HCl 4 mg tablet 4 mg PO Q6H PRN nausea and 04/14/23 10/26/23 Rx vomiting #20 tabs breast pump #1 ea 07/28/23 10/26/23 Rx Patient History Medical History (Updated 08/04/23 @ 16:25 by Sean Rios MD, FACOG) Ectopic GERD (gastroesophageal reflux disease) Fertility testing completed at [facility] with positive high risk HPV History of migraine with aura Cervical intraepithelial neoplasia (TYRELL) Atypical chest pain Surgical History (Updated 03/04/23 @ 15:25 by Mroe Matthews) Status post colposcopy Hx of local excision of skin lesion H/O oral surgery wisdom teeth Family History Aunt Migraine Family/Other Hypertension Denies family history of Colon cancer Ovarian cancer Prostate cancer Myocardial infarction Breast cancer Social History (Updated 03/04/23 @ 15:14 by More Matthews) Smoking Status: Never smoker Second Hand Exposure: No; Do You Dip or Chew Tobacco: No; Tobacco Cessation Education Requested by Patient: No Hx Alcohol Use: No Hx Substance Use: No Preferred Language: Faroese Communication Ability: Effective Estimating Manager Required: No Beliefs That Will Affect Care: None marital status: marital status details: Chris Peterson (32) [phone] Current Living Situation: Spouse and Family Current Living Situation Comment: and son current occupational status: unemployed 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 Feels Safe at Home: Yes Safety Concerns: Feels Safe At This Time Dental Care, Regularly: Yes Assistive Devices: Glasses Review of Systems All systems reviewed & are unremarkable except as noted in HPI & below Physical Exam Physical Exam: FHT Cat 1 [place] Q 2-4 SVE 1 cm on arrival, 3/100/-2, 2 hours later Constitutional: WD/WN, vitals as above Respiratory: normal respiratory effort, lungs clear to auscultation no respiratory distress Cardiovascular: Rate/Rhythm: regular rate and regular rhythm Gastrointestinal (Abdomen): Inspection/Auscultation: abdomen normal to inspection Percussion/Palpation: abdomen soft; abdomen nontender Gravid. No s/s chorio or abruption. Skin: no rashes, warm and dry Psychiatric: A+Ox3, euthymic affect Results & Data Vital Signs (Past 12 Hours) Vital Signs Temp Pulse Resp BP 10/28/23 07:23 36.7 C 20 10/28/23 07:21 69 126/88 10/28/23 06:17 36.7 C 18 10/28/23 05:52 76 136/89 10/28/23 05:49 18 10/28/23 05:49 36.7 C 18 Coding Level of Care Code None Diagnoses Encounter for supervision of normal in multigravida Z34.80
[2023-10-28] MEDS: LACTATED RINGER'S 1,000 ML IV PRN (08:09)
[2023-10-28] MEDS: BUTORPHANOL TARTRATE 2 MG/ML VIAL IV ONE (08:21)
[2023-10-28 08:40] LABS: Hematocrit (blood only) 40.2 % (37.0-47.0); Hemoglobin 13.4 g/dl (12.0-16.0); Mean Corpuscular Hemoglobin 28.3 pg (25.0-34.0); Mean Corpuscular Hgb Conc 33.3 g/dL (32.0-36.0); Mean Corpuscular Volume 84.8 fL (80.0-100.0); Mean Platelet Volume 10.6 fL (9.4-12.4); Platelet Count 245 K/uL (130-400); RDW Coefficient of Variation 14.4 % (11.5-14.5); RDW Standard Deviation 44.3 fL (36.4-46.3); Red Blood Count 4.74 M/uL (4.20-5.40)
[2023-10-28] MEDS ORDERED: BUPIVACAINE 0.25% PF 30 ML VIAL EPI STA (08:51)
[2023-10-28] MEDS ORDERED: ePHEDrine sulfate 50 MG/ML AMP IV PRN (08:51)
[2023-10-28] MEDS ORDERED: LIDOCAINE 2% MPF LOCAL 5 ML VIAL EPI PRN (08:51)
[2023-10-28] MEDS ORDERED: fentaNYL citrate PF 100 MCG/2 ML VIAL EPI STA (08:51)
[2023-10-28] MEDS ORDERED: diphenhydrAMINE 50 MG/ML VIAL IV PRN (08:51)
[2023-10-28] MEDS ORDERED: fentANYL 2 MCG/ML BUPIVacaine 0.125%-NSS 100ML BAG EPI PRN (08:51)
[2023-10-28] MEDS ORDERED: NALOXONE HCL 0.4 MG/1 ML VIAL/CARP IV PRN (08:51)
[2023-10-28] MEDS ORDERED: NALBUPHINE HCL 5 MG in SYRINGE 0 ML IV PRN (08:51)
[2023-10-28] MEDS ORDERED: BUPIVACAINE 0.25% PF 30 ML VIAL EPI PRN (08:51)
[2023-10-28] MEDS ORDERED: SODIUM CHLORIDE 0.9% PF INJ 10 ML VIAL EPI STA (08:51)
[2023-10-28] MEDS ORDERED: LIDOCAINE 2%/EPINEPHRINE 1:200,000 20 ML PF EPI STA (08:51)
[2023-10-28] MEDS ORDERED: ROPIVACAINE 0.5% PF 5 MG/ML 20 ML VIAL EPI PRN (08:51)
[2023-10-28] MEDS ORDERED: fentaNYL citrate PF 100 MCG/2 ML VIAL EPI PRN (08:51)
[2023-10-28] MEDS ORDERED: NALOXONE HCL 1 MG in SODIUM CHLORIDE 0.9% 1,000 ML IV PRN (08:51)
[2023-10-28] MEDS ORDERED: SODIUM CHLORIDE 0.9% PF INJ 10 ML VIAL EPI PRN (08:51)
--- NOTE | 2023-10-28 08:51 | Anesthesiology Consultation ---
Date of Service October 28, 2023 Assessment & Plan (1) Encounter for pre-operative examination: Chart Review Chart Review: Patient NOT seen in Pre Admission Testing and Acceptable Risk for Labor Epidural Consults Requested none History Height/Weight Height: 5 ft 6 in Weight: 113.398 kg Allergies Allergy/AdvReac Type Severity Reaction Status Date / Time dextromethorphan Allergy Unknown RASH Verified 10/26/23 10:58 guaifenesin Allergy Unknown RASH Verified 10/26/23 10:58 pseudoephedrine AdvReac Verified 10/26/23 10:58 [From [facility]] Medications Home Medications Medication Instructions Recorded Confirmed Last Taken 21-iron fu-folic acid PO 03/04/23 10/26/23 Unknown [ Complete] ondansetron HCl 4 mg tablet 4 mg PO Q6H PRN nausea and 04/14/23 10/26/23 Unknown vomiting #20 tabs breast pump #1 ea 07/28/23 10/26/23 Unknown Active Medications Generic Name Dose Route Start Last Admin Trade Name Freq PRN Reason Stop Dose Admin Lactated Ringer's 1,000 mls @ 125 mls/hr 10/28/23 07:52 10/28/23 08:09 Lr IV 10/30/23 07:51 999 mls/hr .Q8H PRN Administration L&D Protocol Protocol Past Medical History Medical History Ectopic GERD (gastroesophageal reflux disease) Fertility testing completed at [facility] with positive high risk HPV History of migraine with aura Cervical intraepithelial neoplasia (TYRELL) Atypical chest pain Past Family History Family History Aunt Migraine Family/Other Hypertension Denies family history of Colon cancer Ovarian cancer Prostate cancer Myocardial infarction Breast cancer Past Surgical History Surgical History Status post colposcopy Hx of local excision of skin lesion H/O oral surgery wisdom teeth Social History Smoking Status: Never smoker Do You Dip or Chew Tobacco: No Hx Alcohol Use: No Hx Substance Use: No substance use type: does not use and former substance user Physical Exam Vital Signs Last Vital Signs Temp 98.1 F 10/28/23 07:23 Pulse 69 10/28/23 07:21 Resp 20 10/28/23 07:23 BP 126/88 10/28/23 07:21 Testing Laboratory Results 10/28/23 08:17
--- NOTE | 2023-10-28 08:57 | Communication Note ---
Date of Service: October 28, 2023 pt breathing with ctx. awaiting epidural. fhts categ 1. toco q2 aware i am taking over her care.
[2023-10-28] MEDS: LIDOCAINE 2%/EPINEPHRINE 1:200,000 20 ML PF ONE (09:05)
[2023-10-28] MEDS: BUPIVACAINE 0.25% PF 30 ML VIAL ONE (09:05)
[2023-10-28] MEDS: fentANYL 2 MCG/ML BUPIVacaine 0.125%-NSS 100ML BAG ONE (09:16)
[2023-10-28] MEDS: ePHEDrine sulfate 50 MG/ML AMP ONE (09:38)
[2023-10-28] MEDS: fentaNYL citrate PF 100 MCG/2 ML VIAL ONE (09:42)
[2023-10-28] MEDS: SODIUM CHLORIDE 0.9% PF INJ 10 ML VIAL ONE (09:43)
[2023-10-28] MEDS: OXYTOCIN 30 UNITS/NSS 30 UNITS/500 ML BAG IV PRN (09:58)
[2023-10-28] MEDS: CALCIUM CARBONATE 500 MG CHEWABLE TAB PO PRN (12:13)
--- NOTE | 2023-10-28 12:16 | Labor Progress Brief Note ---
Date of Service October 28, 2023 Subjective comfortable with epidural. Assessment & Plan (1) Encounter for supervision of normal in multigravida: Plan no significant cx change. fhts categ 1. c/w pit, will see how arom helps labor pattern. Physical Exam Constitutional: WD/WN, vitals as above Genitourinary: Manual OB Exam: + cervical dilation 3 cm, + cervical effacement 90%, + station -2 and + amniotic fluid (arom ) clear OB Exam Monitor Tracing: + external FHT monitor used, + external uterine monitor used (q2-3 pit at 7), + category I and + normal FHT variability Results & Data Vital Signs (Past 12 Hours) Vital Signs Temp Pulse Resp BP Pulse Ox 10/28/23 12:10 79 113/58 L 10/28/23 12:07 73 99 10/28/23 12:02 75 99 10/28/23 11:57 84 97 10/28/23 11:54 66 125/65 10/28/23 11:52 69 97 10/28/23 11:47 72 97 10/28/23 11:42 82 98 10/28/23 11:39 70 129/69 10/28/23 11:37 82 97 10/28/23 11:32 83 100 10/28/23 11:27 78 97 10/28/23 11:24 72 128/68 10/28/23 11:22 75 98 10/28/23 11:17 80 98 10/28/23 11:12 87 97 10/28/23 11:10 72 122/66 10/28/23 11:07 90 98 10/28/23 11:02 90 99 10/28/23 10:57 80 97 10/28/23 10:53 82 115/59 L 10/28/23 10:52 84 100 10/28/23 10:47 91 H 100 10/28/23 10:42 99 H 99 10/28/23 10:40 100 H 122/61 10/28/23 10:37 99 H 98 10/28/23 10:32 101 H 99 10/28/23 10:27 105 H 98 10/28/23 10:23 90 117/57 L 10/28/23 10:22 100 H 98 10/28/23 10:17 92 H 98 10/28/23 10:12 88 98 10/28/23 10:09 97.9 F 90 16 121/59 L 10/28/23 10:07 84 98 10/28/23 10:02 88 99 10/28/23 09:57 89 97 10/28/23 09:53 84 112/61 10/28/23 09:52 108 H 97 10/28/23 09:51 93 H 105/56 L 10/28/23 09:49 107 H 110/58 L 10/28/23 09:47 96 10/28/23 09:47 106 H 10/28/23 09:47 91 H 112/56 L 10/28/23 09:45 98 H 103/56 L 10/28/23 09:43 86 117/58 L 10/28/23 09:42 83 99 10/28/23 09:41 75 121/59 L 10/28/23 09:37 86 97 10/28/23 09:36 89 91/51 L 10/28/23 09:33 98 H 101/50 L 10/28/23 09:32 96 H 97 10/28/23 09:28 107 H 101/56 L 10/28/23 09:27 107 H 98 10/28/23 09:26 89 104/61 10/28/23 09:24 96 H 105/55 L 10/28/23 09:22 96 H 110/58 L 98 10/28/23 09:20 89 106/59 L 10/28/23 09:18 94 H 100/60 10/28/23 09:17 90 97 10/28/23 09:16 91 H 99/55 L 10/28/23 09:14 91 H 101/59 L 10/28/23 09:12 96 10/28/23 09:12 96 H 10/28/23 09:12 83 96/55 L 10/28/23 09:10 88 100/54 L 10/28/23 09:08 72 100/55 L 10/28/23 09:07 74 95 10/28/23 09:05 77 10/28/23 09:05 87 95/47 L 93 10/28/23 09:04 122/73 10/28/23 09:02 69 97 10/28/23 08:59 93 H 138/74 10/28/23 08:57 88 98 10/28/23 07:23 98.1 F 20 10/28/23 07:21 69 126/88 10/28/23 06:17 98.1 F 18 10/28/23 05:52 76 136/89 10/28/23 05:49 18 10/28/23 05:49 98.1 F 18 Coding Level of Care Code None Diagnoses Encounter for supervision of normal in multigravida Z34.80
[2023-10-28] MEDS ORDERED: Nursing to Pharmacy Communication SCH (12:30)
--- NOTE | 2023-10-28 12:58 | Anesthesia Procedure Note ---
Date of Service October 28, 2023 Anesthesia Epidural Re-Dose Vital Signs Temp Pulse Resp BP Pulse Ox 36.7 C 87 16 118/60 100 10/28/23 12:10 10/28/23 12:54 10/28/23 12:10 10/28/23 12:54 10/28/23 12:52 Notes Pain Intensity: 5 Dilatation (cm): 3.0 Effacement (%): 90 After Epidural Re-Dose Mental Status: alert / awake / arousable Pain: improving with treatment Airway Patency, RR, SpO2: stable & adequate BP & HR: stable & adequate Additional Notes: 5 cc 2% lidociane w epi Day of Procedure Evaluation. Date of Surgery October 28, 2023 Height/Weight Height: 5 ft 6 in Weight: 113.398 kg Vital Signs Last Vital Signs Temp 36.7 C 10/28/23 12:10 Pulse 87 10/28/23 12:54 Resp 16 10/28/23 12:10 BP 118/60 10/28/23 12:54 Pulse Ox 100 10/28/23 12:52 Allergies Allergy/AdvReac Type Severity Reaction Status Date / Time dextromethorphan Allergy Unknown RASH Verified 10/26/23 10:58 guaifenesin Allergy Unknown RASH Verified 10/26/23 10:58 pseudoephedrine AdvReac Verified 10/26/23 10:58 [From [facility]] Medications Home Medications Medication Instructions Recorded Confirmed Last Taken breast pump #1 ea 07/28/23 10/26/23 Unknown vits no.124-ferrous fum 1 tab PO HS 10/28/23 10/28/23 10/27/23 21:00 27 mg iron-folic acid 800 mcg tablet ( Vitamin) Active Medications Generic Name Dose Route Start Last Admin Trade Name Freq PRN Reason Stop Dose Admin Calcium Carbonate 500 mg 10/28/23 07:52 10/28/23 12:13 Calcium Carbonate 500 Mg Chewable Tab PO 11/27/23 07:51 500 mg Q6H PRN Administration Indigestion Lactated Ringer's 1,000 mls @ 125 mls/hr 10/28/23 07:52 10/28/23 09:30 Lr IV 10/30/23 07:51 125 mls/hr .Q8H PRN Infusion L&D Protocol Protocol Oxytocin 30 units in 500 mls @ 9 mls/hr 10/28/23 07:52 10/28/23 12:00 Pitocin 30 Units/Nss IV 10/30/23 07:51 0.54 units/hr .Q24H PRN 9 mls/hr Labor Induction/Augmentation Titration Protocol 0.54 UNITS/HR Past Anesthesia History No Hx of Anesthesia Complications and No Family Hx of Anesthesia Complications History of PONV No Hx of PONV and No Hx of Motion Sickness NPO Date Last Intake of Fluids: 10/28/23 Time Last Intake of Fluids: 12:59 Date Last Intake of Solids: 10/28/23 Time Last Intake of Solids: 12:59 Home Medications Home Medications Medication Instructions Recorded Confirmed Last Taken breast pump #1 ea 07/28/23 10/26/23 Unknown vits no.124-ferrous fum 1 tab PO HS 10/28/23 10/28/23 10/27/23 21:00 27 mg iron-folic acid 800 mcg tablet ( Vitamin) Active Medications Generic Name Dose Route Start Last Admin Trade Name Freq PRN Reason Stop Dose Admin Calcium Carbonate 500 mg 10/28/23 07:52 10/28/23 12:13 Calcium Carbonate 500 Mg Chewable Tab PO 11/27/23 07:51 500 mg Q6H PRN Administration Indigestion Lactated Ringer's 1,000 mls @ 125 mls/hr 10/28/23 07:52 10/28/23 09:30 Lr IV 10/30/23 07:51 125 mls/hr .Q8H PRN Infusion L&D Protocol Protocol Oxytocin 30 units in 500 mls @ 9 mls/hr 10/28/23 07:52 10/28/23 12:00 Pitocin 30 Units/Nss IV 10/30/23 07:51 0.54 units/hr .Q24H PRN 9 mls/hr Labor Induction/Augmentation Titration Protocol 0.54 UNITS/HR Exercise / Class Metabolic Activity Metabolic Activity: II 4-5 Yardwork/Stairs/Walk up hill Physical Exam Constitutional: no acute distress Mouth: no dentition abnormality Thyromental Distance: > or= 3.5 Finger Breadths Mallampati Class: II Neck: + visual inspection normal Respiratory: + respiratory effort normal and + clear to auscultation bilaterally; no respiratory distress Cardiovascular: + regular rate and + regular rhythm; no murmur Musculoskeletal: no limited cervical ROM Psychiatric: + alert and + oriented x 3 Proposed Anesthesia Risk / Benefits Reviewed With: PT / POA / Parent / Guardian, Accepts Plan and Informed Consent Obtained
--- NOTE | 2023-10-28 14:51 | Delivery Summary ---
Vaginal Delivery Summary Date of Service October 28, 2023 Vaginal Delivery Summary The patient dilated to complete and pushed to deliver a viable male infant Apgars 8,9 and via from direct OP presentation over intact perineum. Mouth and nose bulb suctioned at perineum. Shoulders and body delivered with ease. was vigorous and crying at . Cord clamped at 30 seconds of life and to maternal abdomen where the cord was then doubly clamped and cut. Placenta delivered spontaneously and intact, three-vessel cord. Hemostasis achieved with dilute pitocin and uterine massage. Cervix and sulci intact. EBL 180 cc. Small vaginal laceration was bleeding and hemostasis achieved with single figure of eight of 3-0 vicryl. Mother and baby stable in recovery. [facility] Vaginal Delivery Charge Delivery Type Details:
[2023-10-28] MEDS ORDERED: oxyCODONE/ACETAMINOPHEN 5mg/325mg TAB PO PRN (15:27)
[2023-10-28] MEDS ORDERED: BENZOCAINE 20% SPRY 85 APPLN/85 GM CAN EXT PRN (15:27)
[2023-10-28] MEDS ORDERED: HYDROCORTISONE ACETATE 25 MG SUPP PR PRN (15:27)
[2023-10-28] MEDS ORDERED: DIPHTHER/TETAN/PERTUS Vaccine (Tdap, Adol/Adult) 0.5mL IM ONE (15:27)
[2023-10-28] MEDS ORDERED: bisacodyL 10 MG SUPP PR PRN (15:27)
--- NOTE | 2023-10-28 16:03 | Anesthesia Procedure Note ---
Date of Service October 28, 2023 Anesthesia Post Epidural Note Vital Signs Vital Signs: Temp Pulse Resp BP Pulse Ox 36.7 C 99 H 20 143/77 H 99 10/28/23 14:07 10/28/23 15:52 10/28/23 15:50 10/28/23 15:52 10/28/23 14:42 Pain Intensity Abdomen: Pain Intensity: 5 Notes Mental Status: alert / awake / arousable and participated in evaluation Nausea / Vomiting: adequately controlled Pain: adequately controlled Airway Patency, RR, SpO2: stable & adequate BP & HR: stable & adequate Hydration State: stable & adequate Neuraxial Anesthesia: was administered and sensory block is resolving Anesthetic Complications: no major complications apparent and Pt Satisfied with anesthetic care Epidural: Removed without complications and With tip intact
[2023-10-28] MEDS: IBUPROFEN 600 MG TAB PO PRN (16:37)
[2023-10-28] MEDS: OXYTOCIN 20 UNITS/LR 1,002 ML IV SCH (16:37)
[2023-10-28] MEDS: DOCUSATE SODIUM 100 MG CAP PO SCH (21:26)
[2023-10-29 00:56] VITALS: O2SAT 99
--- NOTE | 2023-10-29 06:36 | Obstetrical Progress Note ---
Date of Service October 29, 2023 Assessment & Plan (1) care following vaginal delivery: Plan: Doing well Encourage ambulation Pain control Routine post care dc today Admission and Anticipated Discharge Date Admission Date: October 28, 2023 Supervising Physician Co-Signing Physician Notes Resident Physician Supervision Note: I was present with Dr. Delvalle during the history and exam. I discussed the case with the resident and agree with the findings and plan as documented in the note. Any exceptions or clarifications are listed here: stable, doing well. eating, voiding, ambulating, abd soft ff 2 down nt, ext nt calves ppd#1 s/p will dc home,instructions reviewed. rhpos, ri, breast feeding. f/u 6 wk pp check. Documented By: Anju Garcia MD, FACOG Subjective 32 yo post day 1 s/p Ambulation: ambulating normally Voiding: no voiding problems Passing Gas:: Yes Diet Tolerance:: regular diet Lochia:: Small Feeding Type:: breast feeding Current Pain Level: minimal Resting comfortably this AM in NAD. Denies ORTIZ, CP, SOB, N/V/D, LE pain/swelling. Review of Systems Review of Systems: reviewed, per HPI Physical Exam Physical Exam: General: patient resting comfortably, NAD, non-toxic in appearance, answers questions appropriately. Skin: warm, dry, intact HEENT: NC/AT, anicteric sclera, conjunctiva without injection, moist mucus membranes. Heart: +S1/S2, regular, no m/r/g Lungs: equal air entry bilaterally, no rales/rhonchi/wheezes Abd: +BS, soft, NT/ND, uterine fundus firm at umbilicus. Ext: warm, no clubbing/cyanosis or edema, Victor Hugo's neg. Neuro: nonfocal, speech intact, no facial droop, moving all extremities. Results & Data Vital Signs (Past 12 Hours) Vital Signs Temp Pulse Resp BP Pulse Ox O2 Del Method 10/29/23 03:45 36.8 C 62 18 116/77 99 Room Air 10/29/23 00:15 36.7 C 53 L 16 107/70 99 Room Air 10/28/23 21:00 36.8 C 68 16 114/74 98 Room Air Resident Activity Tracking Resident Involvement: Resident Care Provided Care Provided: Adult [facility]
[2023-10-29] MEDS: PRENATAL VITAMIN 1 TAB PO SCH (08:07)
[2023-10-29 08:50] VITALS: RESP 16
[2023-10-29 12:02] VITALS: BP 120/72; PULSE 78; TEMP 98.2
== END 2023-10-29 16:30 | disposition home or self-care (01) | DRG 806 ==
LOC: OPB 05:32 → 4S1 05:35 → 4E2 17:59